=== PATIENT | male | born 1950 | race Caucasian/White ===

== ENCOUNTER 2019-12-27 08:31 | Day surgery (SDC) | payer OTHER ==
--- NOTE | 2019-12-25 10:14 | RAD REPORT ---
EXAM DESCRIPTION: RAD - Chest Pa And Lat (2 Views) - 12/25/2019 10:02 am CLINICAL HISTORY: preop Chest pain. COMPARISON: No comparisons FINDINGS: The lungs are emphysematous but clear. The heart is normal in size. No displaced fractures . IMPRESSION: Prominent COPD.
[2019-12-25 10:15] LABS: Absolute Lymphocytes (CBC) 0.8 K/uL (0.7-4.9); Basophils % 0.8 % (0-1.3); Hematocrit 36.4 % (39.6-49.0); MPV 8.4 fL (7.6-11.3); RBC Red Blood Cell Count 3.78 M/uL (4.33-5.43)
[2019-12-25 10:19] LABS: Potassium 3.8 mmol/L (3.5-5.1)
[2019-12-25 10:21] LABS: Protime INR 0.96
--- NOTE | 2019-12-25 11:13 | EKG ---
Test Date: 2019-12-25 Test Time: 08:27:48 Luggage Maker: SADA MEASUREMENT RESULTS: Intervals: Rate: 57 CA: 232 QRSD: 156 QT: 436 QTc: 424 [place]: P: 45 CA: 232 QRS: -64 T: 53 INTERPRETIVE STATEMENTS: Sinus bradycardia with 1st degree AV block Right bundle branch block Left anterior fascicular block Bifascicular block Abnormal ECG Compared to ECG 10/18/2016 09:21:17 First degree AV block now present Left anterior fascicular block now present Bifascicular block now present Sinus rhythm no longer present Left-axis deviation no longer present Electronically Signed On 12-25-19 11:12:29 CDT by Wilberto Smith
[~2019-12-27 08:31] MED LIST: ATROPINE SULF 1 MG/10 ML SYR IV ONE; FENTANYL CITR 100 MCG/2 ML ONE; HEPA 1000U/500MLS 1,000 UNIT/500 ML BAG IV ONE; HEPARIN 5000 UNIT/ML 1 ML VIAL ONE; LIDOCAINE 1% MPF 30 ML VIAL ONE; MIDAZOLAM HCL 2 MG/2 ML INJ ONE; NA CHLORIDE 0.9% 500 ML ONE
[2019-12-27 09:24] VITALS: TEMP 97.5; O2SAT 100
[2019-12-27 10:45] VITALS: BP 141/63
--- NOTE | 2019-12-27 19:23 | OP ---
Date of Procedure: 12/27/2019 Surgeon: Wilberto Smith MD Barrel Assembler Helper: Toro Palmer The patient will be staying in the hospital for 2 hours of bed rest and then he will go home and see me in the office in about 2 weeks. He was admitted to my service as an outpatient to the laboratory phlebotomist on 12/27/2019. The patient underwent his selective bilateral carotid angiogram. Indication was cerebrovascular disease, history of right internal carotid artery stent with restenosis on carotid Doppler. Description Of Procedure: The patient was brought to the laboratory phlebotomist as an outpatient. He was prepped and draped in the routine sterile fashion. Given Versed for sedation. A 6-Arabic sheath was introdu danilo in the right common femoral artery successfully. Angio-Seal was used to close the case. Angiogr aphy in that region showed a 90% stenosis in the ostium of the right superficial femoral artery. No symptoms have been reported there. We will deal with that later. Of note is that his iliacs were ve ry tortuous. Nevertheless, a JR4 catheter was advanced and the right common carotid artery was selec krysten. Angiography today showed normal common carotid artery. The right external carotid artery was c ompletely occluded. The right internal carotid artery had a stent in it with about a 55% to 60% in-s tent stenosis in the distal part of the stent. The left common carotid artery, external carotid thais ry, and internal carotid artery were all patent without any stenosis or plaquing. A 6-Arabic sheath and catheters were used. No complications. Blood Loss: 5 cc. Postoperative Diagnosis: Moderate to severe cerebrovascular disease. We will initiate therapy with statin, which he is not on. I will start him on Zocor 40 mg daily. Continue aspirin. We will do an other carotid Doppler in 1 year. Total Conscious Sedation: 45 minutes. NB/MODL Voice ID: [id number] Report ID: [id number]
== END 2019-12-27 10:35 | disposition home or self-care (01) ==
LOC: CCL 08:31
DX: I65.21 Occlusion and stenosis of right carotid artery (principal); T82.856A Stenosis of peripheral vascular stent, initial encounter; I70.209 Unspecified atherosclerosis of native arteries of extremities, unspecified extremity; I10 Essential (primary) hypertension; E11.9 Type 2 diabetes mellitus without complications; E78.5 Hyperlipidemia, unspecified; J44.9 Chronic obstructive pulmonary disease, unspecified; G25.81 Restless legs syndrome; M15.0 Primary generalized (osteo)arthritis; F17.210 Nicotine dependence, cigarettes, uncomplicated; Z79.84 Long term (current) use of oral hypoglycemic drugs; Z82.49 Family history of ischemic heart disease and other diseases of the circulatory system
CPT/HCPCS: 93005; 85025; 80048; 36415; 85610; 82947 ×2; 85730; 71046; 36222; C1893; C1760; J2250; J3010; J7040; J1644

== ENCOUNTER 2020-01-06 11:55 | Inpatient (IN) | payer OTHER ==
[2020-01-06] MEDS ORDERED: ACETAMINOPHEN 500 MG TAB ONE (12:29)
[2020-01-06] MEDS ORDERED: PIPER/TAZO/NS 3.375gm 3.375 GM/100 ML BAG ONE (12:29)
[2020-01-06] MEDS ORDERED: NA CHLORIDE 0.9% 2,000 ML ONE (12:29)
[2020-01-06 12:34] LABS: Absolute Lymphocytes (CBC) 0.2 K/uL (0.7-4.9); Basophils % 0.4 % (0-1.3); Lymphocytes % 1.2 % (15.3-44.8); MPV 8.6 fL (7.6-11.3); RBC Red Blood Cell Count 3.14 M/uL (4.33-5.43)
[2020-01-06 12:42] LABS: Protime INR 1.35
[2020-01-06 12:57] LABS: Albumin 2.4 g/dL (3.4-5.0); Bilirubin Direct 0.4 mg/dL (0-0.2); Bilirubin Total 0.9 mg/dL (0.2-1.0); CKMB Creatine Kinase MB 2.1 ng/mL (0.3-3.6); Potassium 3.7 mmol/L (3.5-5.1); Protein, Total 6.1 g/dL (6.4-8.2); Troponin (Emerg Dept Use Only) 0.07 ng/mL (0.0-0.045)
[2020-01-06] MEDS ORDERED: VANCOMYCIN/NS 1 gm 1 GM/250 ML BAG IVPB ONE (13:00)
--- NOTE | 2020-01-06 13:17 | RAD REPORT ---
EXAM DESCRIPTION: RAD - Chest Single View - 01/06/2020 1:04 pm CLINICAL HISTORY: FEVER, groin infection COMPARISON: December 25, 2019 TECHNIQUE: AP portable chest image was obtained 01/06/2020 1:04 pm . FINDINGS: No focal mass or consolidation. Interstitial pattern is prominent as a baseline, accentuat ed due to shallow inspiration. This could mask early edema or infiltrate. No significant pulmonary ed andreas. Heart and vasculature are normal. No measurable pleural effusion and no pneumothorax. No acute bony abnormality seen. No acute aortic findings suspected. IMPRESSION: No focal mass or consolidation. Chronic interstitial pattern, accentuated by shallow inspiration, could mask early edema or infiltrat e.
[2020-01-06 13:36] LABS: Blood Morphology Comment NOT SEEN (NOT SEEN); Platelet Estimate ADEQ; Toxic Granulation 1+
--- NOTE | 2020-01-06 13:52 | RAD REPORT ---
EXAM DESCRIPTION: US - Extremity Venous Uni Ltd - 01/06/2020 1:31 pm CLINICAL HISTORY: SWELLING COMPARISON: None. TECHNIQUE: Real-time sonographic evaluation of the right lower extremity deep venous systems was per formed. FINDINGS: Normal compressibility, flow augmentation, phasic flow and spontaneous flow are identified in the right lower extremity common femoral, superficial femoral, popliteal and posterior tibial vei ns. No intraluminal filling defects seen. There is edema in the superficial subcutaneous fatty tissues. In the right groin area of concern ther e is an amorphous 4 centimeter hypoechoic focus. This is positioned between the vasculature in the sk in surface. On Doppler evaluation there is no blood flow into this collection to suspect pseudoaneury sm. This is most likely hemorrhagic material. Abscess is not suspected at this time. IMPRESSION: No DVT in the right lower extremity. A 4 centimeter hypoechoic focus in the right groin is consistent with hemorrhagic material. Doppler evaluation does not demonstrate pseudoaneurysm.
[2020-01-06] MEDS ORDERED: NA CHLORIDE 0.9% 1,000 ML ONE (14:20)
[2020-01-06] MEDS ORDERED: ONDANSETRON 4 MG/2 ML VIAL IV PRN (14:30)
[2020-01-06] MEDS ORDERED: ACETAMINOPHEN 500 MG TAB PO PRN (14:30)
[2020-01-06] MEDS ORDERED: MORPHINE 2 MG/ML SYR IV PRN (14:30)
[2020-01-06] MEDS ORDERED: Pharmacy Consult 1 EA XX PRN (14:36)
--- NOTE | 2020-01-06 14:36 | EDPHYS ---
Physician Documentation [facility] Name: Brady Galindo Age: 69 yrs Sex: Male : 1950 Arrival Date: 01/06/2020 Time: 11:56 Bed 4 Private MD: Cisco Luke E ED Physician Randy Cordova HPI: 01/05 12:19 This 69 yrs old Male presents to ER via Wheelchair with complaints of Wound mh7 Infection. 12:21 the patient presents with a swollen area of the right groin. Description: The affected mh7 area is moderate sized, irregular, localized, draining, erythematous, swollen, warm. Onset: The symptoms/episode began/occurred yesterday. Possible cause(s): post cardiac catheterization. Associated signs and symptoms: Pertinent positives: erythema, fever, Pertinent negatives: discharge, headache, nausea, shortness of breath, vomiting. Modifying factors: the symptoms are alleviated by nothing, the symptoms are aggravated by nothing. 12:21 Patient states that he had a cardiac catheterization 3 days ago. He developed swelling mh7 at the site in the right groin and fever.. Historical: - Allergies: 12:14 No Known Drug Allergies; ll1 - PMHx: 12:16 Diabetes - NIDDM; High Cholesterol; Hypertension; COPD; ll1 - PSHx: 12:16 angiogram; ll1 - Immunization history:: Adult Immunizations up to date. - Social history:: Smoking status: Patient reports the use of cigarette tobacco products, smokes two packs cigarettes per day. Patient uses alcohol, occasionally. Patient/guardian denies using street drugs. ROS: 12:21 Eyes: Negative for injury, pain, redness, and discharge, ENT: Negative for injury, mh7 pain, and discharge, Neck: Negative for injury, pain, and swelling, Cardiovascular: Negative for chest pain, palpitations, and edema, Respiratory: Negative for shortness of breath, cough, wheezing, and pleuritic chest pain, Abdomen/GI: Negative for abdominal pain, nausea, vomiting, diarrhea, and constipation, Back: Negative for injury and pain, : Negative for injury, bleeding, discharge, and swelling, Neuro: Negative for headache, weakness, numbness, tingling, and seizure, Psych: Negative for depression, anxiety, suicide ideation, homicidal ideation, and hallucinations, Allergy/Immunology: Negative for hives, rash, and allergies, Endocrine: Negative for neck swelling, polydipsia, polyuria, polyphagia, and marked weight changes, Hematologic/Lymphatic: Negative for swollen nodes, abnormal bleeding, and unusual bruising. Exam: 12:21 Constitutional: This is a well developed, well nourished patient who is awake, alert, mh7 and in no acute distress. Head/Face: Normocephalic, atraumatic. Neck: Trachea midline, no thyromegaly or masses palpated, and no cervical lymphadenopathy. Supple, full range of motion without nuchal rigidity, or vertebral point tenderness. No Meningismus. Chest/axilla: Normal chest wall appearance and motion. Nontender with no deformity. No lesions are appreciated. Cardiovascular: Regular rate and rhythm with a normal S1 and S2. No gallops, murmurs, or rubs. Normal PMI, no JVD. No pulse deficits. Respiratory: Lungs have equal breath sounds bilaterally, clear to auscultation and percussion. No rales, rhonchi or wheezes noted. No increased work of breathing, no retractions or nasal flaring. Abdomen/GI: Soft, non-tender, with normal bowel sounds. No distension or tympany. No guarding or rebound. No evidence of tenderness throughout. Back: No spinal tenderness. No costovertebral tenderness. Full range of motion. Male : Normal genitalia with no discharge or lesions. 12:21 Neuro: Awake and alert, GCS 15, oriented to person, place, time, and situation. Cranial nerves II-XII grossly intact. Motor strength 5/5 in all extremities. Sensory grossly intact. Cerebellar exam normal. Normal gait. Psych: Awake, alert, with orientation to person, place and time. Behavior, mood, and affect are within normal limits. 12:21 Musculoskeletal/extremity: Extremities: noted in the right groin: erythema, swelling, tenderness, noted in the right leg: erythema, ROM: intact in all extremities, Circulation is intact in all extremities. Pulses: are normal with no appreciated deficits, Perfusion: the patient is normally perfused throughout, Perfusion: the extremity is normally perfused throughout, Calf tenderness, is absent, Edema, is not appreciated, Sensation intact. Compartment Syndrome exam of affected extremity: is normal. no numbness, no tingling, no sensation deficit, no palor, no weak pulses, Joints: All joints are normal except 12:21 Skin: cellulitis, that is moderate, irregular, on the right groin. 15:38 ECG was reviewed by the Attending Physician. [facility] Vital Signs: 12:08 BP 91 / 42; Pulse 100; Resp 26; Temp 102.6; Pulse Ox 96% on R/A; Pain 2/10; ll1 12:17 BP 115 / 46; Pulse 94; Resp 24; Pulse Ox 97% on R/A; ll1 12:19 Weight 97.98 kg (R); em 12:41 BP 122 / 52; Pulse 86; Resp 24; Pulse Ox 96% on R/A; em 14:04 BP 89 / 49; Pulse 80; Resp 25; Temp 99.4(O); Pulse Ox 96% on R/A; Pain 0/10; em 14:34 BP 96 / 52; Pulse 74; Resp 18; Pulse Ox 96% on R/A; Pain 0/10; em 15:12 BP 101 / 56; Pulse 73; Resp 22; Pulse Ox 96% on R/A; em 16:03 BP 98 / 54; Pulse 74; Resp 26 S; Pulse Ox 100% on 2 lpm NC; Pain 0/10; em MDM: 12:13 Patient medically screened. [facility] 14:29 Differential diagnosis: abscess, cellulitis, wound infection, sepsis. Data reviewed: [facility] vital signs, nurses notes, old medical records, lab test result(s), EKG, radiologic studies, plain films, ultrasound. Data interpreted: hall monitor: rate is 92 beats/min, rhythm is normal sinus rhythm, regular, Interpretation: normal rate, normal rhythm, Pulse oximetry: on room air is 96 %. Interpretation: normal. Counseling: I had a detailed discussion with the patient and/or guardian regarding: the historical points, exam findings, and any diagnostic results supporting the discharge/admit diagnosis, lab results, radiology results, the need for further work-up and treatment in the hospital. 15:18 Physician consultation: Wilberto Smith MD and will see patient in inpatient room. [facility] 01/05 12:17 Order name: Amylase, Serum; Complete Time: 13:19 [facility] 01/05 12:17 Order name: Basic Metabolic Panel; Complete Time: 13:19 [facility] 01/05 12:17 Order name: Blood Culture Adult (2) 01/05 12:17 Order name: CBC with Diff; Complete Time: 14:13 [facility] 01/05 12:17 Order name: Ckmb; Complete Time: 13:19 01/05 12:17 Order name: CPK; Complete Time: 13:19 [facility] 01/05 12:17 Order name: Lactate; Complete Time: 13:19 [facility] 01/05 12:17 Order name: LFT's; Complete Time: 13:19 [facility] 01/05 12:17 Order name: Lipase; Complete Time: 13:19 [facility] 01/05 12:17 Order name: Procalcitonin; Complete Time: 13:19 [facility] 01/05 12:17 Order name: Protime (+inr); Complete Time: 13:19 [facility] 01/05 12:17 Order name: Ptt, Activated; Complete Time: 13:19 [facility] 01/05 12:17 Order name: Troponin (emerg Dept Use Only); Complete Time: 13:19 [facility] 01/05 12:17 Order name: Urine Microscopic Only [facility] 01/05 12:17 Order name: Chest Single View XRAY; Complete Time: 14:13 01/05 12:17 Order name: US Extremity Venous Unilateral Ltd; Complete Time: 14:13 [facility] 01/05 13:37 Order name: Manual Differential; Complete Time: 14:13 [facility] 01/05 14:36 Order name: CONS Pharmacy Consult [facility] 01/05 14:36 Order name: CBC with Automated Diff [facility] 01/05 14:36 Order name: CBC with Automated Diff [facility] 01/05 14:36 Order name: Comprehensive Metabolic Panel [facility] 01/05 14:36 Order name: Comprehensive Metabolic Panel [facility] 01/05 14:39 Order name: CONS Pharmacy Consult [facility] 01/05 14:41 Order name: CONS Pharmacy Consult [facility] 01/05 16:22 Order name: Lactate Sepsis 2 HR Follow-up [facility] 01/05 12:17 Order name: Accucheck; Complete Time: 12:40 [facility] 01/05 12:17 Order name: Cardiac monitoring; Complete Time: 12:40 [facility] 01/05 12:17 Order name: EKG - Nurse/Tech; Complete Time: 14:14 [facility] 01/05 12:17 Order name: IV Saline Lock - Large Bore; Complete Time: 12:40 7 01/05 12:17 Order name: Labs collected and sent; Complete Time: 12:40 7 01/05 12:17 Order name: O2 Per Protocol; Complete Time: 12:40 7 01/05 12:17 Order name: O2 Sat Monitoring; Complete Time: 12:40 7 01/05 14:41 Order name: Consistent Carb (ADA) [address] EDMS EC:38 Rate is 83 beats/min. Rhythm is irregular. QRS [place] is Normal. QRS interval is normal. mh7 QT interval is normal. No Q waves. T waves are Normal. No ST changes noted. Clinical impression: Atrial Fibrillation. Administered Medications: 12:20 Drug: Tylenol 1000 mg Route: PO; em 14:14 Follow up: Response: No adverse reaction; Marked relief of symptoms; Temperature is em decreased 12:22 Drug: NS 0.9% (30 ml/kg) 30 ml/kg Route: IV; Rate: bolus; Site: left forearm; em 15:12 Follow up: IV Status: Completed infusion; IV Intake: 3000ml em 12:35 Drug: Zosyn 3.375 grams Route: IVPB; Infused Over: 60 mins; Site: left forearm; em 13:50 Follow up: Response: No adverse reaction; IV Status: Completed infusion; IV Intake: em 100ml 13:55 Drug: vancoMYCIN 1 grams Route: IVPB; Infused Over: 2 hrs; Site: left forearm; em 15:35 Follow up: Response: No adverse reaction; IV Status: Completed infusion; IV Intake: em 250ml Disposition: 01/06/20 14:35 Hospitalization ordered by Reagan Saul for Inpatient Admission. Preliminary diagnosis is Other specified sepsis. - Bed requested for Telemetry/MedSurg (Inpatient). - Status is Inpatient Admission. hb - Condition is Fair. - Problem is new. - Symptoms have improved. Signatures: Dispatcher [employer] EDHI Terra Blancas RN RN Joce Escudero RN RN Samra Casanova RN RN Kevon Damian RN RN ll1 Randy Cordova MD MD 7 Corrections: (The following items were deleted from the chart) 14:41 14:36 [facility] ordered. EDHI EDHI 15:23 14:35 Hospitalization Ordered by Reagan Saul MD for Inpatient Admission. dw Preliminary diagnosis is Other specified sepsis. Bed requested for Telemetry/MedSurg (Inpatient). Status is Inpatient Admission. Condition is Fair. Problem is new. Symptoms have improved. mh7 16:27 15:23 01/06/2020 14:35 Hospitalization Ordered by Reagan Saul MD for Inpatient hb Admission. Preliminary diagnosis is Other specified sepsis. Bed requested for Telemetry/MedSurg (Inpatient). Status is Inpatient Admission. Condition is Fair. Problem is new. Symptoms have improved. dw
--- NOTE | 2020-01-06 14:36 | ER ---
Nurse's Notes [facility] Name: Brady Galindo Age: 69 yrs Sex: Male : 1950 Arrival Date: 01/06/2020 Time: 11:56 Bed 4 Private MD: Cisco Luke E Diagnosis: Other specified sepsis Presentation: 01/05 12:08 Chief complaint: Patient states: Right groin infection for 3 days, s/p angiogram 1 week ll1 ago here. + fever at home., 101. Coronavirus screen: Patient reports a cough. Patient reports shortness of breath or difficulty breathing. Patient reports a measured and/or subjective temperature greater than 100.4F. Patient denies travel on a cruise ship or to a country the [facility] currently lists as an affected area. Patient denies contact with known and/or suspected case of COVID-19. States SOB and cough are from his COPD. That this is normal for him. Ebola Screen: Patient denies travel to an Ebola-affected area in the 21 days before illness onset. Initial Sepsis Screen: Does the patient meet any 2 criteria? RR > 20 per min. Temp <36.0*C (96.8*F)) or > 38.3*C (100.9*F). HR > 90 bpm. Yes Does the patient have a suspected source of infection? Yes: Skin breakdown/wound. Risk Assessment: Do you want to hurt yourself or someone else? Patient reports no desire to harm self or others. Onset of symptoms was January 03, 2020. 12:08 Method Of Arrival: Wheelchair ll1 12:08 Acuity: DAYNA 2 ll1 Historical: - Allergies: 12:14 No Known Drug Allergies; ll1 - PMHx: 12:16 Diabetes - NIDDM; High Cholesterol; Hypertension; COPD; ll1 - PSHx: 12:16 angiogram; ll1 - Immunization history:: Adult Immunizations up to date. - Social history:: Smoking status: Patient reports the use of cigarette tobacco products, smokes two packs cigarettes per day. Patient uses alcohol, occasionally. Patient/guardian denies using street drugs. Screenin:10 Abuse screen: Denies threats or abuse. Nutritional screening: No deficits noted. em Tuberculosis screening: No symptoms or risk factors identified. Fall Risk None identified. Assessment: 12:04 Reassessment: CODE SEPSIS CALLED. hb 12:10 General: Appears in no apparent distress. comfortable, Behavior is calm, cooperative, em appropriate for age, Denies fever. Pain: Complains of pain in right femoral area Pain currently is 0 out of 10 on a pain scale. at worst was 4 out of 10 on a pain scale. Pain began 2-3 days ago. Neuro: Level of Consciousness is awake, alert, obeys commands, Oriented to person, place, time, situation, Appropriate for age. Cardiovascular: Denies chest pain, shortness of breath, Capillary refill < 3 seconds Patient's skin is warm and dry. Pulses are all present. Respiratory: Reports cough that is Airway is patent Respiratory effort is even, unlabored, Respiratory pattern is regular, symmetrical. GI: Abdomen is flat, Patient currently denies nausea, vomiting. Derm: Skin is intact, is healthy with good turgor, Skin is pink, warm \T\ dry. Wound noted right femoral area Bruising that is on right femoral area. Musculoskeletal: Capillary refill < 3 seconds, Range of motion: intact in all extremities, Swelling present in right leg. 12:22 Reassessment: Dr. Cordova wants pt to receive 2 L initially, if pt can tolerate the em other 1 L we can give it. 13:14 Reassessment: Patient appears in no apparent distress at this time. US at bedside. em 14:00 Reassessment: assisted pt to the restroom via wheelchair, pt had a BM, tolerated well, em wheeled back to room and assisted back into the bed. 15:00 Reassessment: Patient appears in no apparent distress at this time. Patient and/or em family updated on plan of care and expected duration. Pain level reassessed. assisted pt to the restroom, pt reports having watery stool, denies belly pain. Vital Signs: 12:08 BP 91 / 42; Pulse 100; Resp 26; Temp 102.6; Pulse Ox 96% on R/A; Pain 2/10; ll1 12:17 BP 115 / 46; Pulse 94; Resp 24; Pulse Ox 97% on R/A; ll1 12:19 Weight 97.98 kg (R); em 12:41 BP 122 / 52; Pulse 86; Resp 24; Pulse Ox 96% on R/A; em 14:04 BP 89 / 49; Pulse 80; Resp 25; Temp 99.4(O); Pulse Ox 96% on R/A; Pain 0/10; em 14:34 BP 96 / 52; Pulse 74; Resp 18; Pulse Ox 96% on R/A; Pain 0/10; em 15:12 BP 101 / 56; Pulse 73; Resp 22; Pulse Ox 96% on R/A; em 16:03 BP 98 / 54; Pulse 74; Resp 26 S; Pulse Ox 100% on 2 lpm NC; Pain 0/10; em ED Course: 11:56 Patient arrived in ED. am2 11:56 Cisco Luke MD is Private Physician. am2 12:03 Randy Cordova MD is Attending Physician. mh7 12:04 Joce Escudero, RN is Primary Nurse. em 12:10 Patient has correct armband on for positive identification. Placed in gown. Bed in low em position. Call light in reach. Side rails up X2. front desk monitor on. Pulse ox on. NIBP on. 12:11 Triage completed. ll1 12:15 Initial lab(s) drawn, by me, sent to lab. Inserted saline lock: 20 gauge in left em forearm, using aseptic technique. Blood collected. 12:16 Arm band placed on Patient placed in an exam room, on a stretcher, on pulse oximetry, ll1 sepsis alert called. 13:05 Chest Single View XRAY In Process Unspecified. EDMS 13:15 Notified ED physician of a critical lab result(s). Lactate 2.7. hb 13:31 US Extremity Venous Unilateral Ltd In Process Unspecified. EDMS 13:36 EKG done, by ED staff, reviewed by Randy Cordova MD. em 13:56 Ultrasound completed. Patient tolerated well. Notified ED Physician luis. sg3 14:33 Reagan Saul MD is Hospitalizing Provider. 7 16:03 No provider procedures requiring assistance completed. Patient admitted, IV remains in em place. Administered Medications: 12:20 Drug: Tylenol 1000 mg Route: PO; em 14:14 Follow up: Response: No adverse reaction; Marked relief of symptoms; Temperature is em decreased 12:22 Drug: NS 0.9% (30 ml/kg) 30 ml/kg Route: IV; Rate: bolus; Site: left forearm; em 15:12 Follow up: IV Status: Completed infusion; IV Intake: 3000ml em 12:35 Drug: Zosyn 3.375 grams Route: IVPB; Infused Over: 60 mins; Site: left forearm; em 13:50 Follow up: Response: No adverse reaction; IV Status: Completed infusion; IV Intake: em 100ml 13:55 Drug: vancoMYCIN 1 grams Route: IVPB; Infused Over: 2 hrs; Site: left forearm; em 15:35 Follow up: Response: No adverse reaction; IV Status: Completed infusion; IV Intake: em 250ml Intake: 13:50 IV: 100ml; Total: 100ml. em 15:12 IV: 3000ml; Total: 3100ml. em 15:35 IV: 250ml; Total: 3350ml. em Outcome: 14:35 Decision to Hospitalize by Provider. terry 16:06 Admitted to Med/surg accompanied by tech, via stretcher, room 213, with oxygen, with em chart, Report called to ELY Hinton 16:06 Condition: stable 16:06 Instructed on the need for admit, Demonstrated understanding of instructions. 16:27 Patient left the ED. hb Signatures: Dispatcher [employer] EDJoce Harris RN RN Samra Casanova RN RN Netta Godinez Sarah 3 Kevon Damian RN RN ll1 Randy Cordova MD MD [facility]
[2020-01-06] MEDS ORDERED: CEFTRIAXONE/SWI 1gm 1 GM/10 ML SYR IVP SCH (15:00)
[2020-01-06] MEDS ORDERED: NA CHLORIDE 0.9% 1,000 ML IV SCH ×2 (15:00→22:09)
[2020-01-06] MEDS: INSULIN -REGULAR HUMAN 50 UNIT/0.5 ML ML SQ SCH ×2 (16:30→21:00)
--- NOTE | 2020-01-06 17:36 | P.HP ---
Certification for Inpatient With expected LOS: >2 Midnights Practitioner: I am a practitioner with admitting privileges, knowledge of patient current condition, hospital course, and medical plan of care. Services: Services provided to patient in accordance with Admission requirements found in Title 42 Section 412.3 of the Code of Federal Regulations Patient History Date of Service: 01/06/20 Reason for admission: Right groin wound infection swelling of right leg History of Present Illness: Patient is 69 years of age as ended with pain swelling fever in his right groin cardiac CT done on 12/26 patient is a very poor historian and not recall the events that precipitated this admission he also has noticed some swelling of his right leg patient is a heavy smoker fever noted none admission Allergies No Known Drug Allergies Allergy (Verified 12/25/19 09:26) Unknown - Past Medical/Surgical History -: Diabetes -: Hypertension -: Hyperlipidemia -: Carotid artery stenosis -: COPD -: Right-sided carotid artery stent placement - Social History Smoking Status: Current every day smoker Smoking therapy provided: Yes Patient receptive to therapy: Yes Review of Systems General: Weakness Respiratory: Shortness of Breath Musculoskeletal: Leg Pain, Other (Swelling and pain in the right groin) Physical Examination - Vital Signs Temperature: 99.4 F Blood Pressure: 98/54 Pulse: 74 Respirations: 26 - Physical Exam General: Alert, Oriented x3 HEENT: Atraumatic Neck: Supple Respiratory: Clear to auscultation bilaterally Cardiovascular: Edema (Right leg is swollen pitting edema) Gastrointestinal: Normal bowel sounds, Soft and benign, Other (Patient has right grown in duration tenderness from his recent catheterization) Musculoskeletal: No clubbing, No swelling, No contractures, Other Integumentary: No breakdown, No significant lesion, Tenderness/swelling - Studies Laboratory Data (last 24 hrs) 01/06/20 12:15: PT 15.8 H, INR 1.35, APTT 28.6 01/06/20 12:15: WBC 12.9 H D, Hgb 10.2 L, Hct 30.0 L D, Plt Count 191 01/06/20 12:15: Sodium 133 L, Potassium 3.7, BUN 20 H, Creatinine 1.32 H, Glucose 67 L, Total Bilirubin 0.9, AST 15, ALT 19, Alkaline Phosphatase 80, Amylase 25, Lipase 70 L Assessment and Plan - Problems (Diagnosis) (1) Groin hematoma Current Visit: Yes Status: Acute Plan: Patient is 69 years of age has had redness swelling in the right groin possibly infection that some fever most likely septic is white count is also elevated pro calcitonin elevated patient is on IV antibiotics patient recently underwent catheterization office coronary artery complete occlusion of his right external carotid artery his RCA stent the left arteries on the neck are patent there is no pseudoaneurysm (2) Leg edema, right Current Visit: Yes Status: Acute Plan: Patient has 2+ pitting edema no evidence of DVT does have a right groin hematoma (3) Renal insufficiency Current Visit: Yes Status: Acute Plan: Patient has mild renal insufficiency (4) COPD (chronic obstructive pulmonary disease) Current Visit: Yes Status: Acute Plan: Patient is a heavy smoker he appears to be short of breath denies any shortness of breath on exertion start on a bronchodilator he will need outpatient evaluation chest x-rays consistent with COPD and some interstitial changes Qualifiers: Emphysema type: unspecified - Advance Directives Does patient have a Living Will: No Does patient have a Durable POA for Healthcare: No
[2020-01-06] MEDS ORDERED: ENOXAPARIN 100 MG/ML SYR SQ SCH (17:39)
[2020-01-06 17:42] VITALS: BMI 26.1
[2020-01-06] MEDS ORDERED: HYDROCODONE/APAP 5/325 MG TAB PO PRN (17:52)
[2020-01-06] MEDS ORDERED: ENOXAPARIN 40 MG/0.4 ML SQ SCH (18:00)
[2020-01-06] MEDS ORDERED: DULERA 200/5 (MOMETASONE/FORMOTEROL) INHALER IH SCH (21:00)
[2020-01-06] MEDS ORDERED: VANCOMYCIN 1.75 GM in NA CHLORIDE 0.9% 500 ML IVPB SCH (21:00)
[2020-01-06] MEDS ORDERED: NICOTINE 21 MG/PAT TD SCH (21:23)
--- NOTE | 2020-01-06 21:25 | RAD REPORT ---
EXAM DESCRIPTION: CT - Pelvis Angio - 01/06/2020 9:17 pm CLINICAL HISTORY: Right Groin Hematoma s/p Angiogram COMPARISON: Extremity Venous [facility] dated 01/06/2020 TECHNIQUE: During dynamic enhancement using nonionic IV contrast, axial 3 millimeter thick images we re obtained of the pelvis and upper thigh. Sagittal and coronal reformatted images were generated and reviewed. The CT scan was performed using dose optimization techniques as appropriate to a performed exam incl uding one or more of the following: Automated exposure control, adjustment of the mA and/or kV accord ing to patient size (this includes techniques or standardized protocols for targeted exams where dose is matched to indication/reason for exam) and use of iterative reconstruction technique. FINDINGS: Approximately 6.5 centimeter by 4.0 centimeter hematoma is seen in the fatty tissues of th e right groin anterior to the common femoral artery. A small 8 mm focus of extravasated contrast is s een along the right lateral margin of the common femoral artery at the level of the circumflex branch es. No other area of extravasation seen. Arterial tree is very densely calcified. Reactive lymph nodes are seen at the right groin. Fat extends in the origin of the right inguinal canal. A small fat only left inguinal hernia is seen. No retroperitoneal or intraperitoneal extension of hemorrhage. Bowel loops are unremarkable. No air, fluid or inflammatory stranding in the peritoneal or retroperitoneal spaces. No acute bone finding. IMPRESSION: Small 8 mm focus of active extravasation along the right lateral margin of the common fe moral artery at the level of the circumflex branches. Approximately 6.5 x 4.0 centimeter hematoma in the fatty tissues of the right groin. Densely calcified arterial tree. No retroperitoneal extension of hemorrhage.
[2020-01-06 22:32] LABS: Absolute Lymphocytes (CBC) 0.1 K/uL (0.7-4.9); Basophils % 0.1 % (0-1.3); Hematocrit 29.1 % (39.6-49.0); Lymphocytes % 0.7 % (15.3-44.8); MPV 8.6 fL (7.6-11.3); RBC Red Blood Cell Count 3.08 M/uL (4.33-5.43)
--- NOTE | 2020-01-06 23:59 | CON ---
Date of Consultation: 01/06/2020 Reason For Consultation: Right groin infection. History Of Present Illness: Mr. Galindo is a 69-year-old male. He is very well known to me from previo us office visits and admissions. On 12/23/2019, he underwent a carotid angiogram because of abnormal carotid Doppler. He is status post carotid stents in the past. He also has a history of CAD, diabe anderson, hypertension, dyslipidemia, and COPD. Has not had any cardiac complaints. Has had recent cardi ac workup that is negative. His carotid angiogram showed only moderate cerebrovascular disease and t he plan was to continue medical therapy and followup carotid Dopplers on a yearly basis. When he had the catheterization, there were no complication during the procedure. He had a right groin access i n the right common femoral artery. He had an Angio-Seal placed for closure. There were no hematomas upon discharge, but he came back today with a swollen right groin that was erythematous, it was tend er, it was hot to touch and patient appeared to be septic. He was slightly hypotensive initially at 98/54. His mental status was different than his normal. It was difficult to obtain his history from Mr. Galindo as to how far this has been going on. Nevertheless, when he came in, he was given 1 dose o f vancomycin and 1 dose of Zosyn. He was placed on IV fluid. His blood pressure improved to 136/58. His mental status improved slightly. The venous Doppler was negative for pseudoaneurysm and negati ve for DVT. CT angiogram of the groin showed a hematoma of significant size as well as an 8 mm extra vasation in the common femoral artery that was actually active. Past Medical History: As stated above. Allergies: NONE. Review of Systems: Negative. Social History: Negative. Family History: Negative. Medications: At home include aspirin, metoprolol, Zocor, Plavix, glimepiride, inhalers, and Zestril. Physical Examination: Vital Signs: Mr. Galindo's vital signs were stable. He was afebrile. His T-max was 99.4. Last blood pressure was 136/58. He was in sinus rhythm. He was alert and oriented to name and place, but appea red to be slightly confused. HEENT: Negative. Neck: Supple without any lymphadenopathy, JVD, or thyromegaly. He had a right carotid bruit. Chest: Clear to auscultation and percussion. Cardiac: Revealed a regular rhythm and rate without any murmurs, gallops, or rubs. Abdomen: Benign. EXTREMITIES: On his extremity exam, his right groin was swollen. It was hot. It was erythematous, was tender to touch. He had no clubbing, cyanosis, or edema. Diagnostic Data: His creatinine is 1.32. White count was 12,900. Procalcitonin was 1.19. Troponin is 0.07. Impression And Plan: Acute infection of the right groin site with obvious cellulitis, empyema was ru led out by CT scan. He does not have a pseudoaneurysm or thrombus. He does have a pseduo-extravasat ion active about to 8 mm at the common femoral artery. I am very concerned with his mental status an d his white count and his procalcitonin. I think he is septic. He has received vancomycin and Zosyn . He is receiving Rocephin right now, he is receiving IV fluid. I feel lot more comfortable if the patient gets transfer to Cardiovascular Surgery and I am going to send him to Dr. Carrera today at [facility], who was very kind to accept the patient and transfer. His other problems including diabetes, hypertension, dyslipidemia, CAD, and COPD seem to be stable at this point. The case was discussed with Dr. Saul and Dr. Rust who was covering for Dr. Gonzalez. CEDRIC/AUGUSTUSL Voice ID: [id number] Report ID: [id number]
[2020-01-07 00:14] VITALS: BP 102/53
[2020-01-07 01:27] VITALS: TEMP 99.1
[2020-01-07 03:23] VITALS: O2SAT 98
--- NOTE | 2020-01-07 08:42 | CON ---
Date of Consultation: 01/07/2020 Brief History Of Present Illness: Patient is a 69-year-old male with a past medical histor y of diabetes, hypertension, hyperlipidemia, with a right-sided carotid artery stent placement, COPD, who presents to the hospital after having a right groin access for angiogram done 3 days prior to pr esentation here at the hospital. He noted some increased swelling in the groin area and some oozing, redness and tenderness to the groin. As such, he came to the emergency room with the above-stated c omplaints. He is somewhat of a poor historian and appears somewhat uncomfortable during our discussi on, but he is awake, alert, and oriented to person, place, time, and event, but has poor insight into his previous medical history. Past Medical History: As above diabetes, hypertension, hyperlipidemia, carotid artery stenosis, COPD . Past Surgical History: Includes right carotid angiogram 3 days ago through right femoral access point. Social History: He smokes every day and was asking if he could go down and smoke during my examinati on. Denies recreational drug use or alcohol other than socially. Allergies: NO KNOWN DRUG ALLERGIES. Home Medications: Included aspirin, Symbicort, Plavix, glipizide, Hope, Zestril, , metopr olol, Nitrostat, Requip, simvastatin, Zanaflex, and Topamax. Review of Systems: 10-point review of systems other than HPI, he has some shortness of breath, some weakness. Physical Examination: Vital Signs: Blood pressure 136/58, pulse is 83, respiratory rate 20, temperature 99.6. General: He is awake, alert, oriented. Psychiatric: He is appropriate and conversive. He appears slightly uncomfortable and is coughing, b ut states that this is related to his smoking and he wants a cigarette as were speaking and is persev erant on that point. HEENT: He is otherwise normocephalic. His sclerae were anicteric. His mucous membranes are moist. His oropharynx is clear. Neck: Supple. No JVD. Chest: Normal expansion and excursion. Cardiovascular: Regular rate and rhythm. Pulmonary: Decreased breath sounds bilaterally. Coarse rales bilaterally and raspy. Abdomen: Soft, nontender, nondistended. Focused examination of the right groin area: He has a some what pulsatile swelling in the right groin area with cellulitic changes and small weeping of purulent -like material from a puncture site. It is nonbloody at this time, but the area is firm consistent w ith fluid collection. It feels as if there is a small fluid collection on top and adjacent to a firm er, likely clot in the area. Extremities: His right lower extremity is warm when compared to the left and pulses are equal in jeanne ateral lower extremities and feet, although he appears somewhat unkempt with dirt and sits on his bod y generally. Laboratory Data: Reveals a white blood cell count of 10.8. Hemoglobin was 10.2, hematocrit 29.1, pl atelet count is 158, neutrophils 92%. His PT 15.8, INR 1.35, PTT is 28.6. His sodium 133, potassium 3.7, chloride 102, carbon dioxide 23, BUN 20, creatinine 1.3, glucose is 67, lactic acid 1.4, calciu m 8.2, total bilirubin 0.9, direct bilirubin 0.4, AST 15, ALT 19, alkaline phosphatase is 80. His li pase is 70. His procalcitonin 1.19. He had imaging which included an extremity venous study, which was officially read as no DVT in the right lower extremity. A 4 cm hypoechoic focus in the right beatrice in is consistent with hemorrhagic material. Doppler evaluation does not demonstrate a pseudoaneurysm . CTA of the pelvis was performed which was officially read as a small 8 mm focus of active extravas ation along the right lateral margin of the common femoral artery at the level of the circumflex bran ches, approximately 6.5 x 4 cm hematoma in the fatty tissue of the right groin and densely calcified arterial tree. No retroperitoneal extension of the hemorrhage. Assessment And Plan: This is a 69-year-old male who had a recent angiogram and active extravasation from the common femoral artery. 1.Pressure to be applied with sandbag/C-clamp to the right groin area. 2.Type and screen for possible reversal of anticoagulation emergently should this be required. 3.I have spoken with Dr. Smith and the primary medical doctor and the admitting physicians who agr ee that the patient should be transferred to a higher level of care with the capability of having vas cular interventions as we have no vascular surgery at this facility and no capability of doing vascul ar repairs. There is no graft material or other adjunct measures. Therefore, if we had to proceed, it would be a much higher risk procedure for the patient and as such we have recommended transfer to a higher level of care. I have explained the risks, benefits, and alternatives of the above-stated p ovi to the patient that he agrees to proceed as indicated. PAMELLA/DARRION Voice ID: [id number] Report ID: [id number]
--- NOTE | 2020-01-07 08:54 | EKG ---
Test Date: 2020-01-06 Test Time: 13:36:04 Test Designer: DARLIN MEASUREMENT RESULTS: Intervals: Rate: 83 CT: QRSD: 146 QT: 402 QTc: 472 [place]: P: CT: QRS: -67 T: 59 INTERPRETIVE STATEMENTS: Atrial fibrillation Right bundle branch block Left anterior fascicular block Bifascicular block Abnormal ECG Compared to ECG 12/25/2019 08:27:48 Sinus bradycardia no longer present First degree AV block no longer present Bifascicular block still present Electronically Signed On 01-07-20 08:52:30 CDT by Wilberto Smith
[2020-01-07] MEDS ORDERED: MUPIROCIN 2% OINT 22GM TUBE TOP SCH (09:00)
== END 2020-01-07 03:00 | disposition short-term general hospital (02) | DRG 920 ==
LOC: SUPCPDRO 11:55 → ER 11:55 → ERHOLD 15:07 → OBSVTOIN 15:07 → 2ND 16:03
PROVIDERS: ADMIT Internal Medicine Sleep Medicine; ATTEND Family Medicine
DX: L76.82 Other postprocedural complications of skin and subcutaneous tissue (principal); L03.314 Cellulitis of groin; L76.32 Postprocedural hematoma of skin and subcutaneous tissue following other procedure; I10 Essential (primary) hypertension; E78.5 Hyperlipidemia, unspecified; E11.9 Type 2 diabetes mellitus without complications; N28.9 Disorder of kidney and ureter, unspecified; J43.9 Emphysema, unspecified; F17.210 Nicotine dependence, cigarettes, uncomplicated; R60.0 Localized edema; Z79.82 Long term (current) use of aspirin; Z79.51 Long term (current) use of inhaled steroids; Z20.828 Contact with and (suspected) exposure to other viral communicable diseases; Z95.828 Presence of other vascular implants and grafts; Z79.02 Long term (current) use of antithrombotics/antiplatelets; Z79.84 Long term (current) use of oral hypoglycemic drugs
CPT/HCPCS: 36415; 71045; 72191; 80048; 80076; 82150; 82550; 82553; 82947; 83605; 83690; 84145; 84484; 85025; 85610; 85730; 87040; 87077; 87186; 87205; 93005; 93971; 96365; 96367; 99285; J0696; J1650; J2543; J3370; J7030; J7040; J7606; Q9967; U0002

== ENCOUNTER 2025-05-28 07:22 | Emergency (ER) | payer OTHER ==
[2025-05-28 07:55] LABS: Absolute Lymphocytes (CBC) 0.2 K/uL (0.7-4.9); Hematocrit 25.4 % (39.6-49.0); Hemoglobin 7.8 g/dL (13.6-17.9); MCH 27.2 pg (27.0-35.0); MCHC 30.8 g/dL (32.0-36.0); MCV 88.3 fL (80-100); MPV 9.4 fL (7.6-11.3); Nucleated RBC Absolute Count 0.1 (0-0); Nucleated Red Blood Cells % 0.4 % (0-0); RBC Red Blood Cell Count 2.88 M/uL (4.33-5.43); White Blood Count 16.90 thou/uL (4.3-10.9)
--- NOTE | 2025-05-28 08:00 | RAD REPORT ---
EXAMINATION: ONE VIEW CHEST XR CLINICAL INDICATION: right sided weaknes TECHNIQUE: Frontal chest projection is submitted. Examination is limited by patient positioning and t echnique. COMPARISON: 03/06/2025 FINDINGS: Small to moderate left pleural effusion. Asymmetric pulmonary opacities are present, greater on the l eft likely relating pulmonary edema or interstitial pneumonitis. The heart is moderately enlarged in size. Several mildly displaced left lower lateral rib fractures noted.
[2025-05-28] MEDS ORDERED: NA CHLORIDE 0.9% 500 ML ONE (08:04)
[2025-05-28] MEDS ORDERED: IPRATROPIUM BROM 0.5MG/2.5ML ONE (08:04)
[2025-05-28] MEDS ORDERED: LEVALBUTEROL 1.25 MG/3 ML NEB ONE ×2 (08:04→14:22)
[2025-05-28 08:07] LABS: PT Prothrombin Time 24.2 SECONDS (10-13.0); PTT, Activated Partial Thromb 29.8 SECONDS (27.2-37.4); Protime INR 2.19
[2025-05-28 08:14] LABS: Anion Gap 23.4 mEq/L (5.0-15.0); BUN Blood Urea Nitrogen 80.0 mg/dL (7-18); Glucose Level 136.0 mg/dL (74-106); Potassium 5.4 mEq/L (3.5-5.1)
[2025-05-28 08:18] LABS: Troponin High Sensitivity 267.1 pg/mL (<58.9)
--- NOTE | 2025-05-28 08:55 | RAD REPORT ---
EXAM: CT brain without contrast HISTORY: WEAKNESS COMPARISON: 10/31/2014 TECHNIQUE: Multiple contiguous axial images were obtained and a CT of the brain without contrast. Sag ittal and coronal reformats were performed. One or more of the following dose reduction techniques were used: Automated exposure control, adjust ment of the mA and/or kV according to patient size, and/or iterative reconstruction. FINDINGS: No evidence of hydrocephalus, intracranial hemorrhage, or extra-axial fluid collection. Moderate brain atrophy with advanced periventricular and deep white matter chronic microvascular isc hemic changes present. No evidence of midline shift or areas of brain edema. The calvarium is intact. The visualized paranasal sinuses and mastoid air cells are essentially clear . IMPRESSION: No evidence of acute intracranial abnormality.
[2025-05-28 09:07] LABS: Blood Morphology Comment NOT SEEN (NOT SEEN); Differential Total Cells Count 100; Platelets, Giant PRESENT; Segmented Neutrophils 83 % (40-80); Smudge Cells PRESENT
--- NOTE | 2025-05-28 09:07 | RAD REPORT ---
EXAMINATION: CT CHEST WITHOUT CONTRAST CLINICAL INDICATION: right weakness; recent carotid stent procedure TECHNIQUE: Routine CT scan of the chest without intravenous contrast. One or more of the following do se reduction techniques were used: Automated exposure control, adjustment of the mA and/or kV according to patient size, and/or iterative reconstruction. Unless otherwise specified, incidental fi ndings do not require dedicated imaging follow-up. COMPARISON: 05/10/2025 FINDINGS: LOWER NECK: Visualized thyroid gland and soft tissues are normal. LUNGS: Emphysematous changes are present. There is irregular scarring in the left suprahilar region e xtending superiorly. Mild/moderate atelectasis is present in the left base. PLEURA: Moderate left pleural effusion. Small/trace right pleural effusion. MEDIASTINUM AND LYMPH NODES: No mediastinal mass or fluid collection. Normal size mediastinal, hilar, and axillary lymph nodes. The heart is enlarged with coronary calcifications. OSSEOUS STRUCTURES AND CHEST WALL: Several essentially healed rib fractures seen left lower and later al thoracic cage. UPPER ABDOMEN: No significant abnormalities. IMPRESSION: Moderate left pleural effusion with atelectasis in the left lung base. Essentially healed appearing inferior left lateral rib fractures. Cardiomegaly. Examination limited by lack of IV contrast.
--- NOTE | 2025-05-28 09:29 | ER ---
Nurse's Notes [facility] Name: Brady Galindo Age: 74 yrs Sex: Male : 1950 Arrival Date: 05/28/2025 Time: 07:22 Bed 19 Private MD: Diagnosis: Acute liver failure;Acute kidney failure, unspecified;Cerebral infarction, unspecified;Pneumonia, unspecified organism Presentation: 05/28 07:47 Chief complaint: EMS states: patient believes that he might have had a stroke on ap3 Thrusday 05/23/25, as he has lost movement and some sensation in his right arm. patient reports the symptoms are not improving. Coronavirus screen: At this time, the client does not indicate any symptoms associated with coronavirus-19. Ebola Screen: No symptoms or risks identified at this time. Initial Sepsis Screen: Does the patient meet any 2 criteria? RR > 20 per min. Mean Arterial Pressure (MAP) < 65. Does the patient have a suspected source of infection? No. Patient's initial sepsis screen is negative. Risk Assessment: Do you want to hurt yourself or someone else?. Onset of symptoms was May 23, 2025. Care prior to arrival: None. Transition of care: patient was not received from another setting of care. 07:47 Method Of Arrival: EMS: [facility] ap3 07:47 Acuity: [facility] 2 ap3 Triage Assessment: 07:49 General: Appears in no apparent distress. Behavior is cooperative. Pain: Denies pain. ap3 Neuro: Level of Consciousness is awake, alert, obeys commands, Oriented to person, place, time, Speech is normal, Reports weakness in right arm. Neuro: Facial droop on left. Cardiovascular: Patient's skin is warm and dry. Respiratory: Airway is patent Respiratory pattern is regular, symmetrical, tachypnea. Derm: Wound noted generalized scabbing on lower extremities. Historical: - Allergies: 07:49 No Known Allergies; ap3 - PMHx: 07:49 COPD; Diabetes - NIDDM; High Cholesterol; Hypertension; lung cancer; ap3 - Immunization history:: Adult Immunizations unknown. - Infectious Disease History:: Denies. - Family history:: not pertinent. - Social history:: Smoking status: Patient reports the use of cigarette tobacco products, smokes one pack cigarettes per day. - Hospitalizations: : No recent hospitalization is reported. Screenin:51 Abuse screen: Denies threats or abuse. Nutritional screening: No deficits noted. ap3 Tuberculosis screening: No symptoms or risk factors identified. 08:00 [place] Swallow Protocol Brief Cognitive Screen What is your name? Normal, Where are you ap3 right now? Normal, What year is it? Normal. Oral Mechanism Examination Facial Symmetry: Normal, Motion: Normal, Lip Closure: Normal, Oral Mechanism Result: Normal. 3 oz Water Swallow Challenge: Pt able to drink all water without stopping, coughing, choking or throat clearing: Yes Result: PASS Notified: Cole Stern MD. 08:15 [facility] ED Fall Risk Assessment (Adult) History of falling in the last 3 months, ap3 including since admission Yes- fall prone (multiple falls) (3 pts) Confusion or Disorientation No (0 pts) Intoxicated or Sedated No (0 pts) Impaired Gait Yes (1 pt) Mobility Assist Device Used No (0 pt) Altered Elimination Yes (1 pt) Score/Fall Risk Level 3 or more points = High Risk Oriented to surroundings, Maintained a safe environment, Educated pt \T\ family on fall prevention, incl call for assistance when getting out of bed, Hourly rounding (assess needs \T\ fall precautionary measures) done, Offered frequent toileting (1:1 observation), Utilized family, sitter, or virtual supervisor inspection department as indicated. Assessment: 15:29 Reassessment: report given to flight nurse. ap3 Vital Signs: 07:47 BP 102 / 51; Pulse 61; Resp 36; Temp 97.8; Pulse Ox 100% on R/A; Weight 72.57 kg; ap3 Height 6 ft. 2 in. 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 bd 07:27 Cole Stern MD is Attending Physician. rn 07:47 Netta Frank, RN is Primary Nurse. ap3 07:49 Triage completed. ap3 07:52 Arm band placed on right wrist. ap3 07:52 Patient has correct armband on for positive identification. Placed in gown. Bed in low ap3 position. Call light in reach. Side rails up X2. Client placed on continuous cardiac and pulse oximetry monitoring. NIBP monitoring applied. potline monitor on. Pulse ox on. NIBP on. 07:52 Initial lab(s) drawn, by me, sent to lab. EKG done, by ED staff, reviewed by Cole Stern MD. Inserted saline lock: 20 gauge in left antecubital area, using aseptic technique. Blood collected. Flushed with 10 mL NS. 07:54 Stroke CXR 1 View In Process Unspecified. EDMS 08:40 CT Head Brain wo Cont In Process Unspecified. EDMS 08:41 Thorax Wo Con In Process Unspecified. EDMS 09:11 Blood Culture Adult (2) Sent. ap3 09:11 Lactate w/ 2H reflex if indic. Sent. ap3 09:11 BNP Sent. ap3 09:28 Phoenix Rust MD is Hospitalizing Provider. rn 10:57 CT C Spine In Process Unspecified. EDMS 10:57 CT Abd/Pelvis - Without Contrast In Process Unspecified. EDMS 11:59 LFT's Sent. iw 13:00 Lab(s) recollected, by laborer laboratory. ts3 13:[address] [facility]. bd 13:30 Provided Education on: mediations prior to administration . ap3 14:38 pt accepted in transfer to [facility] ER by dr Kym Urrutia admin approval given by eduardo Alvarez. 14:43 Inserted saline lock: 22 gauge in right antecubital area, using aseptic technique. ap3 Flushed with 10 mL NS. 15:35 No provider procedures requiring assistance completed. Patient transferred, IV remains ap3 in place. Administered Medications: 08:12 Drug: Levalbuterol Inhalation 1.25 mg Inhalation once Route: Inhalation; ap3 09:11 Follow up: Response: No adverse reaction ap3 08:12 Drug: Ipratropium Inhalation Aerosol 0.5 mg Inhalation once Route: Inhalation; ap3 09:11 Follow up: Response: No adverse reaction ap3 08:12 Drug: NS 0.9% IV 500 ml 500 ml IV at 1 bolus once; to be given as a bolus over 30 ap3 minutes Volume: 500 ml; Route: IV; Rate: 1 bolus; Site: left antecubital; 09:12 Follow up: IV Status: Completed infusion; IV Intake: 500ml ap3 11:58 Drug: Aspirin PO 325 mg PO once Route: PO; iw 13:18 Follow up: Response: No adverse reaction ap3 14:19 Drug: D5W IV 1000 ml, Sodium Bicarbonate IVP 150 mEq IV at 100 ml/hr continuous Route: ap3 IV; Rate: 100 ml/hr; Site: left antecubital; 15:38 Follow up: IV Status: Infusion continued upon transfer ap3 14:43 Drug: Cefepime IVPB 1 grams IVPB at 200 ml/hr once over 30 mins; (mix in NS 100 mL) ap3 Route: IVPB; Rate: 200 ml/hr; Infused Over: 30 mins; Site: right antecubital; 15:20 Follow up: IV Status: Completed infusion ap3 14:43 Drug: Thiamine IV 400 mg IV at calculated rate once Route: IV; Rate: calculated rate; ap3 Site: right antecubital; 15:37 Follow up: IV Status: Completed infusion ap3 14:43 Drug: Sodium Bicarbonate IVP 1 amp IVP once; (50 mL); equals 50 mEq Route: IVP; Site: ap3 right antecubital; 15:37 Follow up: Response: No adverse reaction ap3 14:43 Drug: Levalbuterol Inhalation 1.25 mg Inhalation once Route: Inhalation; ap3 15:20 Drug: vancoMYCIN IVPB 1 grams IVPB once over 2 hrs Route: IVPB; Infused Over: 2 hrs; ap3 Site: right antecubital; 15:37 Follow up: IV Status: Infusion continued upon transfer ap3 Medication: 07:53 VIS not applicable for this client. ap3 Intake: 09:12 IV: 500ml; Total: 500ml. ap3 Outcome: 09:28 Decision to Hospitalize by Provider. rn 13:20 ER care complete, transfer ordered by . rn 15:30 Transferred by helicopter to [facility]: Report given at ap3 bedside to [facility] 15:33 Patient left the ED. jb4 15:35 Condition: stable ap3 15:35 Instructed on the need for transfer, NIH Stroke Scale - NIH Stroke Score Date: 05/28/2025 Time: 07:32 Total Score = 6 10. Dysarthria (speech clarity - read or repeat words) - 0(Normal) 11. Extinction and Inattention (visual/tactile/auditory/spatial/personal) - 0(No abnormality) 1a. Level of Consciousness (LOC) - 0(Alert) 1b. Level of Consciousness (LOC) (Month \T\ Age) - 0(Both) 1c. LOC Commands (Open \T\ Closes Eyes/Pharmacist Critical Care) - 0(Both) 2. Best Gaze (Lateral Gaze Paresis) - 0(Normal) 3. Visual Field Loss - 0(No visual loss) 4. Facial Palsy - 2(Partial paralysis) 5a. Left Arm: Motor (10-second hold) - 0(No drift) 5b. Right Arm: Motor (10-second hold) - 2(Drift, some effort against gravity) 6a. Left Leg: Motor (5-second hold - always test supine) - 0(No drift) 6b. Right Leg: Motor (5-second hold - always test supine) - 1(Drift) 7. Limb Ataxia (finger/nose \T\ heel/carrington - test with eyes open) - 0(Absent) 8. Sensory Loss (pinprick arms/legs/face) - 1(Mild to moderate loss) 9. Best Language: Aphasia (description/naming/reading) - 0(No aphasia) Initials: rn Signatures: Dispatcher [employer] EDMS Keke Cabrales Irene, RN RN iw Nieto, Roman, MD MD rn Bryson, James, RN RN jb4 Netta Frank RN RN ap3 María Solis ts3 Corrections: (The following items were deleted from the chart) 10:32 09:13 BP 118 / 54; Pulse 65bpm; Resp 18bpm; Pulse Ox 96% RA; Temp 34F; ap3 ap3
--- NOTE | 2025-05-28 09:29 | EDPHYS ---
Physician Documentation [facility] Name: Brady Galindo Age: 74 yrs Sex: Male : 1950 Arrival Date: 05/28/2025 Time: 07:22 Bed 19 Private MD: ED Physician Cole Stern HPI: 05/28 07:32 This 74 yrs old Male presents to ER via Unassigned with complaints of weakness. rn 07:32 The patient presents to the emergency department with weakness of the right upper rn extremity, right lower extremity, paresthesias of the right lower extremity, right upper extremity. Onset: The symptoms/episode began/occurred 5 day(s) ago. Severity of symptoms: At their worst the symptoms were moderate in the emergency department the symptoms are unchanged. Patient reports 5 days ago noticed right arm weakness, noticed he could not put things or take things out of a drawer. Weakness has persisted and not improving. Reports majority weakness of his right upper extremity and can barely lift it, strength worsens distally. Also reports right leg weakness. Also reports numbness of the right arm and right leg. [facility] had carotid stent removed 6 weeks ago in [place]. [facility] is not taking anticoagulation. Historical: - Allergies: 07:49 No Known Allergies; ap3 - PMHx: 07:49 COPD; Diabetes - NIDDM; High Cholesterol; Hypertension; lung cancer; ap3 - Immunization history:: Adult Immunizations unknown. - Infectious Disease History:: Denies. - Family history:: not pertinent. - Social history:: Smoking status: Patient reports the use of cigarette tobacco products, smokes one pack cigarettes per day. - Hospitalizations: : No recent hospitalization is reported. ROS: 07:32 Constitutional: Negative for fever, chills, and weight loss, Cardiovascular: Negative rn for chest pain, palpitations, and edema, Respiratory: Positive for shortness of breath Abdomen/GI: Negative for abdominal pain, nausea, vomiting, diarrhea, and constipation, MS/Extremity: Negative for injury and deformity, Skin: Negative for injury, rash, and discoloration, Neuro: Positive for weakness and numbness Exam: 07:32 Constitutional: Disheveled male, mild tachypnea noted Head/Face: Normocephalic, rn atraumatic. Cardiovascular: Tachycardic, regular. No pulse deficits. Respiratory: Mild tachypnea, no retractions Skin: Multiple abrasions and skin tears bilateral lower extremities Neuro: Awake and alert, GCS 15, oriented to person, place, time, and situation. Left lower facial droop noted with forehead sparing. Right arm falls to bed, right leg with mild drift. Left upper and left lower extremities 4 out of 5 strength. Decreased sensation to soft touch and painful stimuli on the right side as well. 07:37 ECG was reviewed by the Attending Physician. rn Vital Signs: 07:47 BP 102 / 51; Pulse 61; Resp 36; Temp 97.8; Pulse Ox 100% on R/A; Weight 72.57 kg; ap3 Height 6 ft. 2 in. ; 08:16 BP 114 / 45; Pulse 61; Resp 31; Pulse Ox 100% on Nebulizer Mask; ap3 09:13 BP 118 / 54; Pulse 65; Resp 34; Pulse Ox 96% on R/A; ap3 10:27 BP 114 / 55; Pulse 65; Resp 21; Pulse Ox 98% on R/A; ap3 10:32 Temp 97.8; ap3 13:18 BP 107 / 52; Pulse 63; Resp 24; Pulse Ox 96% on R/A; ap3 14:48 BP 110 / 53; Pulse 76; Resp 31; Pulse Ox 98% on Nebulizer Mask; ap3 15:29 BP 122 / 45; Pulse 68; ap3 07:47 Body Mass Index 20.54 (72.57 kg, 187.96 cm) ap3 NIH Stroke Scale Scores: 07:32 NIHSS Score: 6 rn MDM: 07:27 Medical Screening Exam initiated rn 09:26 Data reviewed: vital signs, nurses notes, lab test result(s), EKG, radiologic studies, rn CT scan, plain films, and as a result, I will admit patient. Consideration of Admission/Observation Patient was admitted/placed on observation. Escalation of care including admission/observation considered. Independent interpretation of the following test(s) in the Emergency Department X-Ray: My interpretation is Chest x-ray images show possible pulmonary edema per my interpretation. hall monitor: rate is 65 beats/min, Rhythm is normal sinus rhythm, regular, with no ectopy, Interpretation: normal rate, normal rhythm. Care significantly affected by the following chronic conditions: Hypertension, Chronic Obstructive Pulmonary Disease. Counseling: I had a detailed discussion with the patient and/or guardian regarding the historical points, exam findings, and any diagnostic results supporting the discharge/admit diagnosis, lab results, radiology results, the need for further work-up and treatment in the hospital. Response to treatment: the patient's symptoms have mildly improved after treatment, and as a result, I will admit patient. ED course: Patient with multiple problems going on. Right sided weakness with possible subacute infarction. Not TNK candidate due to delayed presentation of 5 days. Patient also with COPD exacerbation, chest x-ray images negative for pneumonia but did show possible pulmonary edema. Patient also with acute kidney injury and uremia with mild acidosis. Will admit to hospitalist service for further care.. 10:45 ED course: Hospital service requests addition of CT C-spine, CT abdomen pelvis and 1 rn LFTs ordered prior to admission.. 12:37 ED course: Patient will not receive 30 mL/kg bolus due to imaging showing bilateral rn pleural effusions, pulmonary edema and his blood pressure is okay, last blood pressure is 114/55. Patient has received 500 cc bolus thus far. Sepsis reevaluation completed. 13:16 ED course: After hospitalist requested workup, 3.5 hours later, request transfer for rn higher level of care, liver failure. Hospitalist consulted with Dr. Martinez and Dr. Zheng request transfer.. 14:15 ED course: Patient accepted for transfer to [facility]' ICU. Digital Intern requests rn high-dose IV thiamine as well as bicarbonate infusion and will take patient for transfer.. 05/28 07:28 Order name: Basic Metabolic Panel; Complete Time: 08:19 rn 05/28 07:28 Order name: CBC with Diff; Complete Time: 09:23 rn 05/28 07:28 Order name: High Sensitivity Troponin; Complete Time: 08:19 rn 05/28 07:28 Order name: Protime (+inr); Complete Time: 08:11 rn 05/28 07:28 Order name: Ptt, Activated; Complete Time: 08:11 rn 05/28 08:20 Order name: BNP; Complete Time: 10:37 rn 05/28 08:20 Order name: Blood Culture Adult (2) rn 05/28 08:20 Order name: Lactate w/ 2H reflex if indic.; Complete Time: 10:37 rn 05/28 08:27 Order name: Glucose, Ancillary Testing; Complete Time: 08:33 EDMS 05/28 09:08 Order name: Manual Differential; Complete Time: 09:23 EDMS 05/28 09:55 Order name: Ghost Lactate-NO COLLECT Timer; Complete Time: 12:29 EDMS 05/28 10:41 Order name: LFT's; Complete Time: 12:34 rn 05/28 12:29 Order name: LDH; Complete Time: 13:44 ap3 05/28 12:32 Order name: Bilirubin Direct; Complete Time: 13:44 EDMS 05/28 12:32 Order name: Haptoglobin EDMS 05/28 12:32 Order name: Lactic Dehydrogenase; Complete Time: 13:44 EDMS 05/28 12:32 Order name: Retic Count; Complete Time: 13:17 EDMS 05/28 12:52 Order name: VBG Venous Blood Gas; Complete Time: 13:46 EDMS 05/28 13:07 Order name: Lactate Sepsis 2 HR Follow-up; Complete Time: 13:17 EDMS 05/28 07:28 Order name: Stroke CXR 1 View; Complete Time: 08:11 rn 05/28 08:04 Order name: CT Head Brain wo Cont; Complete Time: 09:23 rn 05/28 08:36 Order name: Thorax Wo Con; Complete Time: 09:23 EDMS 05/28 10:41 Order name: CT C Spine; Complete Time: 11:13 rn 05/28 10:44 Order name: CT Abd/Pelvis - Without Contrast; Complete Time: 11:13 rn 05/28 14:44 Order name: BIPAP rn 05/28 07:28 Order name: Accucheck; Complete Time: 08:16 rn 05/28 07:28 Order name: Cardiac monitoring; Complete Time: 07:52 rn 05/28 07:28 Order name: EKG - Nurse/Tech; Complete Time: 07:52 rn 05/28 07:28 Order name: IV Saline Lock; Complete Time: 07:52 rn 05/28 07:28 Order name: Labs collected and sent; Complete Time: 07:52 rn 05/28 07:28 Order name: NPO; Complete Time: 07:52 rn 05/28 07:28 Order name: O2 Per Protocol; Complete Time: 07:52 rn 05/28 07:28 Order name: O2 Sat Monitoring; Complete Time: 07:52 rn 05/28 07:28 Order name: Stroke Swallow Screen; Complete Time: 08:01 rn EC:37 Rate is 61 beats/min. Rhythm is regular. QRS interval is prolonged at 162 msec. QT rn interval is normal. No Q waves. T waves are Normal. No ST changes noted. Clinical impression: Junctional rhythm. Interpreted by me. Reviewed by me. Administered Medications: 08:12 Drug: Levalbuterol Inhalation 1.25 mg Inhalation once Route: Inhalation; ap3 09:11 Follow up: Response: No adverse reaction ap3 08:12 Drug: Ipratropium Inhalation Aerosol 0.5 mg Inhalation once Route: Inhalation; ap3 09:11 Follow up: Response: No adverse reaction ap3 08:12 Drug: NS 0.9% IV 500 ml 500 ml IV at 1 bolus once; to be given as a bolus over 30 ap3 minutes Volume: 500 ml; Route: IV; Rate: 1 bolus; Site: left antecubital; 09:12 Follow up: IV Status: Completed infusion; IV Intake: 500ml ap3 11:58 Drug: Aspirin PO 325 mg PO once Route: PO; iw 13:18 Follow up: Response: No adverse reaction ap3 14:19 Drug: D5W IV 1000 ml, Sodium Bicarbonate IVP 150 mEq IV at 100 ml/hr continuous Route: ap3 IV; Rate: 100 ml/hr; Site: left antecubital; 15:38 Follow up: IV Status: Infusion continued upon transfer ap3 14:43 Drug: Cefepime IVPB 1 grams IVPB at 200 ml/hr once over 30 mins; (mix in NS 100 mL) ap3 Route: IVPB; Rate: 200 ml/hr; Infused Over: 30 mins; Site: right antecubital; 15:20 Follow up: IV Status: Completed infusion ap3 14:43 Drug: Thiamine IV 400 mg IV at calculated rate once Route: IV; Rate: calculated rate; ap3 Site: right antecubital; 15:37 Follow up: IV Status: Completed infusion ap3 14:43 Drug: Sodium Bicarbonate IVP 1 amp IVP once; (50 mL); equals 50 mEq Route: IVP; Site: ap3 right antecubital; 15:37 Follow up: Response: No adverse reaction ap3 14:43 Drug: Levalbuterol Inhalation 1.25 mg Inhalation once Route: Inhalation; ap3 15:20 Drug: vancoMYCIN IVPB 1 grams IVPB once over 2 hrs Route: IVPB; Infused Over: 2 hrs; ap3 Site: right antecubital; 15:37 Follow up: IV Status: Infusion continued upon transfer ap3 Disposition Summary: 05/28/25 13:20 Transfer Ordered Notes: Transfer Location: [facility] rn Reason: Higher level of care rn Condition: Stable(05/28/25 13:20) rn Problem: new(05/28/25 13:20) rn Symptoms: are unchanged(05/28/25 13:20) rn Accepting Physician: (05/28/25 15:33) [email or web address] Diagnosis - Acute liver failure rn - Acute kidney failure, unspecified(05/28/25 13:20) rn - Cerebral infarction, unspecified(05/28/25 13:20) rn - Pneumonia, unspecified organism rn Forms: - Medication Reconciliation Form rn - 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 Total time: 80 minutes NIH Stroke Scale - NIH Stroke Score Date: 05/28/2025 Time: 07:32 Total Score = 6 10. Dysarthria (speech clarity - read or repeat words) - 0(Normal) 11. Extinction and Inattention (visual/tactile/auditory/spatial/personal) - 0(No abnormality) 1a. Level of Consciousness (LOC) - 0(Alert) 1b. Level of Consciousness (LOC) (Month \T\ Age) - 0(Both) 1c. LOC Commands (Open \T\ Closes Eyes/Group Insurance Special Agent) - 0(Both) 2. Best Gaze (Lateral Gaze Paresis) - 0(Normal) 3. Visual Field Loss - 0(No visual loss) 4. Facial Palsy - 2(Partial paralysis) 5a. Left Arm: Motor (10-second hold) - 0(No drift) 5b. Right Arm: Motor (10-second hold) - 2(Drift, some effort against gravity) 6a. Left Leg: Motor (5-second hold - always test supine) - 0(No drift) 6b. Right Leg: Motor (5-second hold - always test supine) - 1(Drift) 7. Limb Ataxia (finger/nose \T\ heel/carrington - test with eyes open) - 0(Absent) 8. Sensory Loss (pinprick arms/legs/face) - 1(Mild to moderate loss) 9. Best Language: Aphasia (description/naming/reading) - 0(No aphasia) Initials: rn Signatures: Dispatcher [employer] EDMS Angeles Lewis, RN Cole Bee MD MD rn Bryson, James, RN RN jb4 Netta Frank RN RN ap3 Corrections: (The following items were deleted from the chart) 07:29 07:29 BASIC METABOLIC PANEL+C.LAB.BRZ ordered. EDMS EDMS 07:29 07:29 CBC+H.LAB.BRZ ordered. EDMS EDMS 07:29 07:29 Troponin High Sensitivity+C.LAB.BRZ ordered. EDMI EDMS 07:29 07:29 PROTIME (+INR)+COAG.LAB.BRZ ordered. EDMI EDMS 07:29 07:29 PTT, ACTIVATED+COAG.LAB.BRZ ordered. EDMI EDMS 07:29 07:29 Head Angio+CT.RAD.BRZ ordered. EDMI EDMS 07:29 07:29 Neck Angio+CT.RAD.BRZ ordered. EDMI EDMS 07:29 07:29 Chest Single View+RAD.RAD.BRZ ordered. EDMI EDMS 08:05 08:05 Head Brain Wo Cont+CT.RAD.BRZ ordered. EDMI EDMS 08:21 08:21 PROBNP+C.LAB.BRZ ordered. EDMI EDMS 08:21 08:21 BLOOD CULTURE*+BA.LAB.BRZ ordered. EDMI EDMS 08:21 08:21 LACTATE+C.LAB.BRZ ordered. EDMI EDMS 12:29 12:29 LACTIC DEHYDROGENASE+C.LAB.BRZ ordered. EDMI EDMI 13:18 09:28 Inpatient Admission rn rn 13:18 09:28 Phoenix Rust rn rn 13:18 09:28 Telemetry/MedSurg (Inpatient) rn rn 13:18 09:28 Stable rn rn 13:18 09:28 new rn rn 13:18 09:28 have improved rn rn 13:18 09:28 Standard rn rn 13:18 09:28 rn rn 13:18 09:28 Weakness rn rn 13:18 09:28 COPD/ Chronic obstructive pulmonary disease with (acute) exacerbation rn rn 13:18 09:28 Acute kidney failure, unspecified rn rn 13:18 09:28 Cerebral infarction, unspecified rn rn 14:16 09:26 Critical care time: Bedside Care: 30 minutes, Consultation: 5 minutes. rn Total time: 35 minutes rn 15:33 13:20 Dr. alex jb4
[2025-05-28] MEDS ORDERED: ASPIRIN 325 MG TAB ONE (10:38)
--- NOTE | 2025-05-28 11:08 | RAD REPORT ---
EXAMINATION: CT CERVICAL SPINE WITHOUT CONTRAST HISTORY: right arm weakness COMPARISON: None TECHNIQUE: Multiple contiguous axial images were obtained in a CT of the cervical spine without IV co ntrast. Sagittal and coronal reformats were performed. One or more of the following dose reduction techniques were used: Automated exposure control, adjustment of the mA and kV according to patient si ze, and iterative reconstruction. Unless otherwise specified, incidental findings do not require dedicated imaging follow-up. FINDINGS: 3 mm degenerative anterolisthesis of C2 on 3. 4 mm degenerative anterolisthesis C3 on 4. This a poste rior osteophyte is present C4-5, C5-6 and C6-7. Prominent facet hypertrophy is present upper and mid cervical levels. Moderate central canal stenosis is likely present which is probably close to severe at C5-6 with central canal is narrowed to 6 mm. The odontoid is normal and the lateral masses are symmetric. Carotid atherosclerosis. IMPRESSION: No evidence of acute osseous abnormality of the cervical spine. Advanced cervical degenerative changes mid cervical spine resulting in significant canal stenosis.
--- NOTE | 2025-05-28 11:12 | RAD REPORT ---
EXAMINATION: CT ABDOMEN AND PELVIS WITHOUT CONTRAST CLINICAL INDICATION: request from hospitalist TECHNIQUE: CT abdomen and pelvis was performed, without IV contrast, as per department protocol. Axia l, sagittal and coronal reconstructions were obtained. One or more of the following dose reduction techniques were used: Automated exposure control, adjustment of the mA and kV according to the patien t size, and iterative reconstruction. Unless otherwise specified, incidental findings do not require dedicated imaging follow-up. COMPARISON: 03/06/2025 FINDINGS: The lack of intravenous contrast limits the sensitivity of this exam for evaluation of solid visceral organs, vascular structures, and retroperitoneum. LOWER CHEST: Small right and moderate left pleural effusion with left lung base atelectasis. LIVER:Liver size is prominent without gross liver lesion. Possible stones in the gallbladder or sludg e. SPLEEN: Normal size. No focal lesion. PANCREAS: No mass, ductal dilation, or gadiel-pancreatic fluid. ADRENALS: Normal; no mass. KIDNEYS AND URETERS: Normal size and contour. No hydronephrosis. Vascular calcification noted. URINARY BLADDER: Normal contour. GASTROINTESTINAL TRACT: No evidence of bowel obstruction, significant free fluid, free air or abscess . Moderate stool throughout the colon. APPENDIX: Appendix not visualized, but no inflammatory changes in region of appendix. LYMPH NODES: No lymphadenopathy. MUSCULOSKELETAL: Advanced lumbar degenerative changes with levoscoliosis. ADDITIONAL FINDINGS: Advanced aortoiliac atherosclerosis. IMPRESSION: Moderate left pleural effusion with left lung base atelectasis. Small right pleural effusion. Possible gallstones or gallbladder sludge. Advanced aortoiliac atherosclerosis. Moderate stool throughout the colon. Significant degenerative change throughout the lumbar spine.
[2025-05-28 12:31] LABS: ALT/SGPT 1353.0 U/L (16-61); AST/SGOT 1405.0 U/L (15-37); Albumin 2.8 g/dL (3.4-5.0); Albumin/Globulin Ratio 0.7 (1.1-1.8); Alkaline Phosphatase 278.0 U/L (45-117); Bilirubin Indirect, Calculated 0.5 mg/dL (0.2-0.8); Globulin 4.3 g/dL (2.3-3.5)
--- NOTE | 2025-05-28 12:56 | P.CNS ---
Date of Consult: 05/28/25 Reason for Consult: Right arm weakness Requesting Physician: Cole Stern Chief Complaint: Right arm weakness History of Present Illness: Patient is a 74-year-old gentleman who came to the hospital with weakness of the right upper extremity. Patient was also having Left facial weakness. Patient has a history of lung cancer and he is in remission. He has been following up with radiation oncology. Otherwise, patient has been in good health up until . That is when he noticed that he could not move his right upper extremity. He did not come into the emergency room right away. His symptoms were not improving and he was more short of breath so he came in earlier today. In the ER patient was tachypneic and having weakness of the right upper extremity. He also has a whitish discoloration of his tongue. He has multiple wounds on his lower extremities. His lactic acid came back elevated at 10. Spoke to nurse practitioner and liver function testing was ordered. His ALT and AST have come back greater than at thousand and it is alk phos is greater than 270. His PTT is greater than 20. I consulted gastroenterology by phone and spoke to Dr. Martinez. Dr. Martinez is concerned that patient has acute fulminant hepatitis. With the weakness of his right upper extremity we also did CT imaging of the brain as well as cervical spine. CT of the brain did not reveal any acute abnormalities but the CT of the spine does show some stenosis around C5-C6. I am not sure if this bicep explains everything going on with the patient. With patient's liver pathology and neural logic issues plan is to transfer him to a tertiary care facility. Spoke to specialist and they recommend treatment for acute fulminant hepatitis. Allergies No Known Drug Allergies Allergy (Verified 12/25/19 09:26) Unknown Home Medications: Hydrocodone 10/APAP 325 [[place] 10/325*] 1 tab PO TID PRN 01/06/20 Ropinirole HCl [Requip*] 4 mg PO TID 01/06/20 Amlodipine [Norvasc*] 5 mg PO DAILY #30 tab 03/09/25 Losartan Potassium [Cozaar*] 50 mg PO DAILY 30 Days #30 tab 03/09/25 - Past Medical/Surgical History Diabetic: Yes -: Diabetes -: Hypertension -: Hyperlipidemia -: Carotid artery stenosis -: COPD -: Right-sided carotid artery stent placement - Family History Father Family History: Reviewed- Non-Contributory - Social History Smoking Status: Current every day smoker Alcohol use: Yes CD- Drugs: No Caffeine use: No Review of Systems 10-point ROS is otherwise unremarkable Physical Examination Reviewed General: Moderate distress HEENT: Other (Thickening of the scalp) Neck: Supple, 2+ carotid pulse no bruit, JVD not distended, Bruit Respiratory: Other (Tachypneic with no murmurs) Cardiovascular: Regular rate/rhythm, Normal S1 S2 Gastrointestinal: Normal bowel sounds, Soft and benign, Non-distended Integumentary: Skin breakdown, Skin lesion, Erythema, Warmth, Arterial ulcer Neurological: Other (Unable to lift his right upper extremity with the left facial droop), Abnormal gait, Abnormal strength, Abnormal tone Laboratory Data (last 24 hrs) 05/28/25 05/28/25 05/28/25 09:06 07:44 07:44 WBC 16.90 H Hgb 7.8 L Hct 25.4 L Plt Count 229 PT 24.2 H INR 2.19 APTT 29.8 Sodium Potassium BUN Creatinine Glucose Total Bilirubin 1.5 H AST 1405 H ALT 1353 H Alkaline Phosphatase 278 H 05/28/25 07:44 WBC Hgb Hct Plt Count PT INR APTT Sodium 132 L Potassium 5.4 H BUN 80 H Creatinine 2.31 H Glucose 136 H Total Bilirubin AST ALT Alkaline Phosphatase - Problems (1) Fulminant hepatic failure Current Visit: Yes Status: Acute (2) Lactic acidosis Current Visit: Yes Status: Acute (3) Lung cancer Current Visit: Yes Status: Acute (4) Right arm weakness Current Visit: Yes Status: Acute (5) Facial droop Current Visit: Yes Status: Acute (6) Anemia Current Visit: Yes Status: Acute Conclusions/ Impression: 1. Fulminant hepatic failure; ALT/AST are greater than 1353/1405 and an alk phos is greater than 250. Patient is lactic acid is greater than 10. Patient's total bili is 1.5. PT is 24. Patient is tachypneic and will get a venous blood gas. Patient may benefit from Mucomyst. He will benefit from going to a tertiary care facility. Spoke to her naphthol soaping machine operator recommends transfer for fulminant hepatic failure. 2. Right upper extremity weakness and left facial droop; this needs to be further evaluated. MRI of the brain will be needed. May need to get antiplatelet and statin therapy. Also concern for additional neurologic issues that may need neurosurgical intervention 3. Anemia; unknown etiology. Will further evaluate for hemolysis 4. Significantly elevated lactic acidosis; will go ahead and get patient started on bicarb drip. 5. History of lung cancer with pleural effusion; possibly malignant pleural effusion. This needs to be further evaluated 6. History of tobacco use. Patient requesting nicotine patch 7. GI DVT prophylaxis Critical Care: Yes Time Spent Managing Pts care (In Minutes): 50
[2025-05-28 12:59] LABS: Percent Reticulocyte Count 2.53 % (0.4-2.05); RBC Red Blood Cell Count 2.77 M/uL (4.33-5.43)
[2025-05-28 13:42] LABS: PCO2, Venous Blood Gas 39.0 mmHg (41-51); PO2, Venous Blood Gas 46.0 mmHg (25-40)
[2025-05-28 13:43] LABS: Base Excess, VBG -13.3 mmol/L (-2.0-3.0); Blood Gas Inspired Oxygen, VBG 100.0 %; O2 Saturation, VBG 69.4 % (40.0-70.0)
[2025-05-28 13:44] LABS: PH, Venous Blood Gas 7.19 (7.32-7.42)
[2025-05-28 13:45] LABS: HCO3, Venous Blood Gas 14.9 mmol/L (21.0-29.0)
[2025-05-28] MEDS ORDERED: NACHLORIDE 0.45% 1,000 ML with NA BICARB 8.4% 100 MEQ IV SCH (14:00)
[2025-05-28] MEDS ORDERED: THIAMINE 200 MG/2 ML INJ ONE (14:22)
[2025-05-28] MEDS ORDERED: NA CHLORIDE 0.9% 100 ML ONE (14:23)
[2025-05-28] MEDS ORDERED: VANCOMYCIN 1 GM/VIAL ONE (14:23)
[2025-05-28] MEDS ORDERED: CEFEPIME 1 GM/VIAL ONE (14:23)
[2025-05-28] MEDS ORDERED: NA CHLORIDE 0.9% 250 ML ONE (14:23)
[2025-05-28 22:58] VITALS: TEMP 97.8
[2025-05-28 23:07] VITALS: O2SAT 98
[2025-05-28 23:08] VITALS: BP 122/45
== END 2025-05-28 15:33 | disposition short-term general hospital (02) ==
LOC: ER 07:22
DX: K72.00 Acute and subacute hepatic failure without coma (principal); N17.9 Acute kidney failure, unspecified; I63.9 Cerebral infarction, unspecified; R29.706 NIHSS score 6; J18.9 Pneumonia, unspecified organism; I10 Essential (primary) hypertension; J44.9 Chronic obstructive pulmonary disease, unspecified; E11.9 Type 2 diabetes mellitus without complications; F17.210 Nicotine dependence, cigarettes, uncomplicated; D64.9 Anemia, unspecified; Z85.118 Personal history of other malignant neoplasm of bronchus and lung
CPT/HCPCS: 93005; 87040 ×2; 85025; 80048; 36415; 83615 ×2; 85610; 85044; 82947; 80076; 83605 ×2; 85730; 82248; 84484; 83010; 83880; 70450; 71250; 72125; 74176; 71045; 99285; 82803; 94660; J3411; J7614 ×2; J7644; J3373; J7050; J7040; J0692